=== PATIENT | female | born 2000 | race Caucasian/White ===

== ENCOUNTER 2022-10-05 11:16 | Emergency (ER) | payer MEDICAID, SELFPAY ==
[2022-10-05 11:30] VITALS: BP 187/98; PULSE 87; RESP 20; TEMP 36.8; O2SAT 100; BMI 43.8
--- NOTE | 2022-10-05 11:43 | EXP.UTC ---
Discharge Plan Disposition Patient Disposition: Home, Self-Care Condition: Good Prescriptions Prescriptions: New fluticasone propionate [Flonase Allergy Relief] 50 mcg/actuation spray,suspension 1 - 2 spray intranasal DAILY Qty: 16 0RF Rx Instructions: administer into each nostril azithromycin [Zithromax Z-Herminio] 250 mg tablet See Rx Instructions .ROUTE .COMPLEX 5 Days Qty: 6 0RF Rx Instructions: For 250 mg dose pack: take 500 mg today (day 1), then 250 mg for 4 days (days 2-5) methylprednisolone [Medrol (Herminio)] 4 mg tablets,dose pack See Rx Instructions .Route .COMPLEX 6 Days Qty: 21 0RF Rx Instructions: taper pack; No Action fluticasone propion-salmeterol [Advair Diskus] 250-50 mcg/dose blister with device 1 ea INHALATION POSTTR montelukast 10 mg tablet 10 mg PO DAILY loratadine 10 mg tablet 10 mg PO DAILY Referrals Follow up/Referrals: Provider,Referral, MD [Primary Care Provider] - See instructions Activity Restrictions/Add. Instructions Additional Instructions/Restrictions: *Monitor Temp, Over the counter Motrin or Tylenol as directed/as needed Tylenol every 4 hours and Motrin every 6 hours (as long as your family doctor has told you that you can take it) for fever or pain. and straight to ER if unable to lower temp less than 101.0 after medication given *Warm salt water gargles may help to soothe the throat *Throat Lozenges? *Warm fluids like tea with honey may help to soothe the throat? *Sleep elevated *Humidifier/Vaporizer *Flonase 2 sprays in each nostril daily but be aware that it may take 2-3 days before you notice improvement Your throat swab was sent for culture. Those results are typically sent to your primary care. Be sure to follow up in 2-3 days with your family doctor/primary care physician if no improvement so they can review those result and treat if necessary. If you don?t have a primary care doctor, I recommend you get one but in the mean time, you will have to return to a walk in clinic Follow up IMMEDIATELY for new or worsening symptoms or no Noticeable improvement over the next 48-72 hours. 911 for difficulty breathing or swallowing Clinical Impressions Clinical Impression: Sinusitis Instructions Patient Instructions: Sinusitis, DI for Sinusitis Discharge ED Provider: Gina Mcclain [facility] [place] HPI General Stated complaint: Cough, congestion, chest congestion Mode of Arrival: Ambulatory Source of Information: Patient Limitations: No Limitations Time Seen by Provider: 10/05/22 11:43 Description of Symptoms (Recalled from Triage Doc. by RN): SINUS ISSUES congestion, cough, runny nose HEENT Symptoms (Recalled from RN notes): Yes Resp Symptoms (Recalled from RN notes): No Skin Symptoms (Recalled from RN notes): No MS Symptoms (Recalled from RN notes): No Functional Status (Recalled from RN notes): n/a History of Present Illness Provider Complaint: Patient states that for about a week she has been having sinus congestion and pressure States that she has continued to get worse States that she has been taking OTC cold medication and it hasnt helped any and continued to get worse States that today she is still having pressure in her sinuses and her throat is sore and hurting so she came in Related Data Home Medications Medication Instructions Recorded Confirmed fluticasone 250 mcg-salmeterol 50 1 ea inhalation POSTTR daily 10/05/22 10/05/22 mcg/dose blistr powdr for inhalation (Advair Diskus) loratadine 10 mg tablet 10 mg PO DAILY allergies 10/05/22 10/05/22 montelukast 10 mg tablet 10 mg PO DAILY . 10/05/22 10/05/22 Previous Rx's Medication Instructions Recorded azithromycin 250 mg tablet See Rx Instructions PO .COMPLEX 5 10/05/22 (Zithromax Z-Herminio) days #6 tabs fluticasone propionate 50 1 - 2 spray intranasal DAILY #16 10/05/22 mcg/actuation nasal grams spray,suspension (Flonase Allergy Relief)
[2022-10-05 12:19] LABS: UTC Pregnancy Test, Urine Negative (Negative)
[2022-10-05 12:20] LABS: UTC Influenza A Antigen Negative (Negative); UTC Influenza B Antigen Negative (Negative); UTC Strep Screen (Rapid) Negative (Negative)
[2022-10-05 12:22] VITALS: BP 187/98; PULSE 87; RESP 20; TEMP 36.8; O2SAT 100
== END 2022-10-05 12:21 | disposition home or self-care (01) ==
PROVIDERS: Emergency Provider Nurse Practitioner
DX: J01.90 Acute sinusitis, unspecified (principal)
CPT/HCPCS: 81025; 87804; 87880; 99212; 99214; G0463

== ENCOUNTER 2022-10-28 09:54 | Emergency (ER) | payer MEDICAID, SELFPAY ==
[2022-10-28 10:05] VITALS: BP 136/77; PULSE 94; RESP 18; TEMP 36.8; O2SAT 99; BMI 44.3
--- NOTE | 2022-10-28 10:19 | EXP.UTC ---
Discharge Plan Disposition Patient Disposition: Home, Self-Care Condition: Good Prescriptions Prescriptions: New cefdinir 300 mg capsule 300 mg PO BID Qty: 20 0RF No Action fluticasone propion-salmeterol [Advair Diskus] 250-50 mcg/dose blister with device 1 ea INHALATION POSTTR montelukast 10 mg tablet 10 mg PO DAILY loratadine 10 mg tablet 10 mg PO DAILY Referrals Follow up/Referrals: Provider,Referral, MD [Primary Care Provider] - See instructions Activity Restrictions/Add. Instructions Additional Instructions/Restrictions: *Monitor Temp, Over the counter Motrin or Tylenol as directed/as needed Tylenol every 4 hours and Motrin every 6 hours (as long as your family doctor has told you that you can take it) for fever or pain. and straight to ER if unable to lower temp less than 101.0 after medication given *Warm salt water gargles may help to soothe the throat *Throat Lozenges? *Warm fluids like tea with honey may help to soothe the throat? *Sleep elevated? *Humidifier/Vaporizer Your throat swab was sent for culture. Those results are typically sent to your primary care. Be sure to follow up in 2-3 days with your family doctor/primary care physician if no improvement so they can review those result and treat if necessary. If you don?t have a primary care doctor, I recommend you get one but in the mean time, you will have to return to a walk in clinic Follow up IMMEDIATELY for new or worsening symptoms or no Noticeable improvement over the next 48-72 hours. 911 for difficulty breathing or swallowing Clinical Impressions Clinical Impression: Pharyngitis Instructions Patient Instructions: Sore Throat, Fluticasone Nasal [place] Discharge ED Provider: Gina Mcclain [facility] [place] General Stated complaint: Sore throat, congestion, drainage, cough, fever Mode of Arrival: Ambulatory Source of Information: Patient Limitations: No Limitations Time Seen by Provider: 10/28/22 10:19 Description of Symptoms (Recalled from Triage Doc. by RN): PATIENT C/O SORE THROAT AND SWOLLEN TONSILS X 2 WEEKS HEENT Symptoms (Recalled from RN notes): Yes Resp Symptoms (Recalled from RN notes): No Skin Symptoms (Recalled from RN notes): No MS Symptoms (Recalled from RN notes): No Functional Status (Recalled from RN notes): WNL History of Present Illness Provider Complaint: Patient states that she has been having sore throat, swollen tonsils nasal congestion and drainage for about 2 weeks states that she thought it was just allergies or a cold but it hasnt got any better so she came in Related Data Home Medications Medication Instructions Recorded Confirmed fluticasone 250 mcg-salmeterol 50 1 ea inhalation POSTTR Asthma 10/05/22 10/28/22 mcg/dose blistr powdr for inhalation (Advair Diskus) loratadine 10 mg tablet 10 mg PO DAILY Allergy symptoms 10/05/22 10/28/22 montelukast 10 mg tablet 10 mg PO DAILY Allergy symptoms 10/05/22 10/28/22 Previous Rx's Medication Instructions Recorded cefdinir 300 mg capsule 300 mg PO BID #20 caps 10/28/22 Allergies Allergy/AdvReac Type Severity Reaction Status Date / Time No Known Allergies Allergy Verified 10/05/22 11:42 Worker's Comp Is this a Worker's Comp case?: No [facility] Disclaimer: The information contained in this section may have been updated after the patient was seen, as this information can be updated by other users. Medical History (Updated 10/28/22 @ 10:35 by Gina Mcclain APRN) Anxiety Asthma Depression Migraine Urinary tract infection Social History (Updated 10/05/22 @ 12:04 by Gina Mcclain APRN) Smoking Status: Unknown if ever smoked alcohol intake: never current occupational status: employed Travel in the last 8 weeks: None ROS Obtained: Yes All systems reviewed & no additional complaints except as documented and Yes Systems reviewed as appropriate & no additional
[2022-10-28 10:27] LABS: UTC Strep Screen (Rapid) Negative (Negative)
[2022-10-28 10:45] VITALS: BP 136/77; PULSE 94; RESP 18; TEMP 36.8; O2SAT 99
== END 2022-10-28 10:47 | disposition home or self-care (01) ==
PROVIDERS: Emergency Provider Nurse Practitioner
DX: J02.9 Acute pharyngitis, unspecified (principal); R50.9 Fever, unspecified; R05.9 Cough, unspecified; R09.81 Nasal congestion
CPT/HCPCS: 87880; 99212; 99214; G0463

== ENCOUNTER 2023-06-28 22:35 | Emergency (ER) | payer OTHER, MEDICAID, SELFPAY ==
[2023-06-28 22:35] VITALS: BP 148/84; BP 153/87; PULSE 107; RESP 20; TEMP 37.1; O2SAT 100
--- NOTE | 2023-06-28 22:39 | PC.NURSE ---
Trauma alert called
--- NOTE | 2023-06-28 22:47 | PC.NURSE ---
Trauma alert cancelled
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
--- NOTE | 2023-06-28 22:48 | ECG_ITS ---
APPROVED REPORT Exam: Resting ECG HR:103 bpm ECG Measurements Heart Rate 103 AXES NC 187 P 75 QRSd 82 QRS 69 QT 340 T 17 QTc 399 Conclusion SINUS TACHYCARDIA Atrial abnormality NONSPECIFIC T-WAVE ABNORMALITY ABNORMAL RHYTHM ECG UNCONFIRMED REPORT Electronically signed by : Reginaldo Ellis MD 06/29/2023 18:40:06
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
[2023-06-28 22:50] LABS: POC Glucose,Bedside 171 (70-110)
[2023-06-28 22:57] VITALS: BMI 44.6
[2023-06-28 22:59] LABS: Basophils % 0.2 % (0.1-2.0); Eosinophils # 0.1 K/mm3 (0.0-0.4); Eosinophils % 0.8 % (0.1-12.0); Hematocrit 43.1 % (37.0-47.0); Hemoglobin 14.3 g/dL (12.2-16.2); Lymphocytes % 17.7 % (10-50); Mean Corpuscular HGB Conc 33.2 g/dL (31.8-35.4); Mean Corpuscular Hemoglobin 26.9 pg (27.0-31.2); Mean Corpuscular Volume 81.3 fl (81-99); Mean Platelet Volume 6.9 fl (7.4-10.4); Monocytes # 0.8 K/mm3 (0.1-1.0); Monocytes % 4.6 % (1.7-9.3); Neutrophils # 13.1 K/mm3 (1.8-7.8); Neutrophils % 76.7 % (37.0-80.0); Platelet Count 347 K/mm3 (142-424); Red Cell Distribution Width 13.2 % (11.5-17.5); White Blood Count 17.1 K/mm3 (4.5-13.0)
[2023-06-28 23:01] LABS: MANUAL DIFFERENTIAL MANUAL DIFFERENTIAL (MANUAL DIFF)
[2023-06-28 23:02] VITALS: BP 140/83; PULSE 101; O2SAT 100
[2023-06-28 23:02] LABS: Chloride 104 mmol/L (98-107); Potassium 3.6 mmoL/L (3.5-5.1); Sodium 137 mmol/L (136-145)
[2023-06-28 23:05] LABS: Alanine Aminotransferase 50 U/L (12-78); Albumin Level 4.5 g/dl (3.5-5.0); Albumin/Globulin Ratio 1.4 (1.1-1.8); Alkaline Phosphatase 113 U/L (38-126); Anion Gap 13.6 mEq/L (5-15); Aspartate Amino Transferase 62 U/L (14-36); Bilirubin,Total 0.5 mg/dl (0.2-1.3); Blood Urea Nitrogen 11 mg/dl (7-17); Calcium 8.8 mg/dl (8.4-10.2); Carbon Dioxide 23 mmol/L (22.0-30.0); Creatinine Clearance Estimated 145 mL/min (50-200); Estimated Glomerular Filt Rate 127 ml/min (>60); GFR (African American) 154 ML/MIN (>60); Globulin 3.3 g/dL (1.3-3.2); Glucose 183 mg/dl (74-100); Lipase 141 U/L (23-300); Total Protein,Serum 7.8 g/dl (6.3-8.2)
[2023-06-28 23:07] LABS: INR 0.99 (0.9-1.1); Prothrombin Time 10.7 seconds (10.1-12.5)
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
[2023-06-28 23:08] LABS: HCG Qualitative, Serum Negative (Negative)
[2023-06-28 23:21] LABS: Troponin I < 0.01 ng/ml (0.00-0.034)
[2023-06-28 23:37] LABS: Eosinophils % 1 % (0-3); Lymphocytes % 18 % (10-50); Monocytes % 6 % (2-9); Neutrophils % 75 % (42-76); RBC Morphology Normal; Total Cells Counted 100
[2023-06-28 23:38] LABS: Platelet Estimate Normal
[2023-06-29] VITALS: BP 163/100; PULSE 101; O2SAT 100
[2023-06-29 00:30] VITALS: BP 148/95; PULSE 108; O2SAT 100
[2023-06-29 01:04] VITALS: BP 148/95; PULSE 104; RESP 20; TEMP 36.7; O2SAT 100
[2023-06-29 01:15] VITALS: BP 148/84; BP 153/87; PULSE 107; RESP 20; TEMP 37.1; O2SAT 100; BMI 44.6
== END 2023-06-29 01:21 | disposition home or self-care (01) ==
PROVIDERS: Emergency Provider Emergency Medicine; PCP Family Medicine
DX: R07.89 Other chest pain (principal); V47.5XXA Car driver injured in collision with fixed or stationary object in traffic accident, initial encounter; R00.0 Tachycardia, unspecified
CPT/HCPCS: 70450; 70496; 70498; 71045; 71275; 72125; 72128; 72131; 72170; 72192; 74174; 80053; 82962; 83690; 84484; 84703; 85007; 85025; 85610; 93005; 99285; Q9967